=== PATIENT | female | born 1970 | race Caucasian/White ===

== ENCOUNTER → 2017-03-09 | Outpatient (CLI) | payer OTHER ==
[~2017-03-09] MED LIST: ALPR-411 PO; BUPR-83 PO; LEVO150T PO
[2017-03-09 14:20] LABS: URINE APPEARANCE CLOUDY (CLEAR); URINE BILIRUBIN NEG (NEG); URINE COLOR YELLOW; URINE EPITHELIAL CELL AUTO >30 /lpf (0-5); URINE NITRITE NEG (NEG); URINE SPECIFIC GRAVITY 1.017 (1.000-1.030); UROBILINOGEN NEG (NEG)
[2017-03-09 14:27] LABS: MANUAL MICROSCOPIC REQUIRED? NO; REVIEW REQ? NO
== END | disposition home or self-care (01) ==
LOC: C.LABSPEC 13:32
PROVIDERS: ATTEND Physician Assistant
DX: R39.9 Unspecified symptoms and signs involving the genitourinary system (principal)

== ENCOUNTER → 2017-03-22 | Outpatient (CLI) | payer OTHER ==
--- NOTE | 2017-03-23 08:21 | MAMMOGRAPHY REPORT ---
BILATERAL DIGITAL SCREENING MAMMOGRAM TOMOSYNTHESIS WITH CAD: 03/22/2017 CLINICAL HISTORY: Routine screening. TECHNIQUE: Bilateral CC and MLO views of the breasts with and without implant displacement views wer e obtained. Tomosynthesis was also performed on the implant displaced images. Current study was als o evaluated with a Computer Aided Detection (CAD) system. COMPARISON: Comparison is made to exams dated: 03/31/2015 mammogram, 02/07/2014 mammogram, 11/29/2012 ma mmogram - [facility], 12/08/2010 mammogram, 08/19/2014 mammogram, and 02/14/2014 mammog mitchell - [facility]. BREAST COMPOSITION: The tissue of both breasts is heterogeneously dense, which may obscure small mas ses. FINDINGS: There are round and punctate benign-appearing microcalcifications scattered in the breasts. Bilateral sub-pectoral saline implants are intact. No new suspicious mass, architectural distortio n or cluster of microcalcifications is seen. IMPRESSION: ACR BI-RADS CATEGORY 1: NEGATIVE There is no mammographic evidence of malignancy. A 1 year screening mammogram is recommended. The pa tient will receive written notification of the results. Approximately 10% of breast cancers are not detected with mammography. A negative mammographic report should not delay biopsy if a clinically suggestive mass is present. Elvira Price M.D. ay/:03/22/2017 18:02:32 [employer]: Raven WRIGHT)([place]), [facility] letter sent: Normal 1/2 BI-RADS Code: ACR BI-RADS Category 1: Negative
== END | disposition home or self-care (01) ==
LOC: C.MAMM 15:01
PROVIDERS: ATTEND Obstetrics & Gynecology
DX: Z12.31 Encounter for screening mammogram for malignant neoplasm of breast (principal)

== ENCOUNTER → 2017-03-28 | Outpatient (CLI) | payer OTHER ==
--- NOTE | 2017-03-28 09:22 | DIAGNOSTIC IMAGING REPORT ---
ULTRASOUND ABDOMEN COMPLETE CLINICAL HISTORY: Generalized abdominal pain. COMPARISON STUDY: Abdominal CT dated 08/02/2016. TECHNIQUE: Real-time, grayscale, and color flow sonography of the abdomen was performed. Images are reviewed in the transverse and longitudinal planes. FINDINGS: Liver: The liver is normal in size and echotexture. There is no intrahepatic biliary ductal dilatation. The main portal vein is patent. Gallbladder: The gallbladder is normal in appearance. No gallstones are identified. There is no gallbladder wall thickening or pericholecystic fluid. A sonographic Rodriguez's sign is reportedly absent. The common bile duct measures up to 0.4 cm in diameter. Pancreas: Visualized portions of the pancreatic head and body are normal in appearance. Spleen: The spleen is normal in size and echotexture, measuring 10.9 cm in length. Kidneys: The kidneys are normal in size and echotexture. There is no hydronephrosis. The right kidney measures 10.2 cm in length and the left kidney measures 10.2 cm in length. No shadowing calculi are identified. Abdominal vasculature: Visualized portions of the abdominal aorta and IVC are normal in appearance. Ascites: None. IMPRESSION: Unremarkable sonographic assessment of the abdomen. Electronically signed by: Everett Schmidt M.D. 03/28/2017 9:21 AM Dictated Date/Time: 03/28/2017 9:18 AM
== END | disposition home or self-care (01) ==
LOC: C.ULTRBC 08:42
PROVIDERS: ATTEND Physician Assistant
DX: R10.84 Generalized abdominal pain (principal)

== ENCOUNTER → 2017-07-29 | Outpatient (CLI) | payer OTHER ==
[~2017-07-29] MED LIST changes: +GADAVIST IV PRN
--- NOTE | 2017-07-29 09:04 | DIAGNOSTIC IMAGING REPORT ---
MRI OF THE BRAIN COMBO INTERNAL ARTERY CANAL PROTOCOL CLINICAL HISTORY: Facial injury. Dizziness. Tinnitus. Loss of balance. COMPARISON STUDY: No priors. TECHNIQUE: MRI of the brain was performed utilizing various T1 and T2-weighted sequences in the axial, sagittal, and coronal planes. Contrast-enhanced sequences were acquired following the administration of 6.5 cc of Gadavist. Additional high-resolution imaging was performed through the skull base both pre and post contrast to assess the internal auditory canals. FINDINGS: Brain parenchyma: The brain parenchyma is normal in appearance. There is no hemorrhage or mass effect. There is no restricted diffusion to suggest acute ischemia. No enhancing mass lesion is identified on the postcontrast images. Bowden-white matter differentiation is preserved. No extra-axial fluid collection is seen. The cerebellar tonsils are normal in configuration. Ventricles, sulci, and cisterns: Normal in configuration. Internal artery canals: There is no enhancing mass lesion identified within the cerebellopontine angle bilaterally. No mass or abnormal enhancement is seen along the course of the internal auditory canals. The middle ear structures are normal as visualized. Pituitary and sella: Unremarkable. Intracranial vasculature: Normal flow voids are maintained at the skull base. Orbits: The bony orbits are grossly intact. Orbital contents are normal in appearance. Sinuses and mastoids: Trace mucosal thickening is seen in the maxillary antra. The remaining paranasal sinuses and the mastoid air cells are clear. Calvarium: Unremarkable. Cervical cord: Partially visualized cervical spinal cord is normal in morphology and signal intensity. IMPRESSION: 1. No acute intracranial abnormality. 2. Unremarkable MRI assessment of the internal auditory canals. Electronically signed by: Everett Schmidt M.D. 07/29/2017 9:03 AM Dictated Date/Time: 07/29/2017 8:58 AM
== END | disposition home or self-care (01) ==
LOC: C.MRI 07:34
PROVIDERS: ATTEND Physician Assistant
DX: R51 Headache (principal); R26.89 Other abnormalities of gait and mobility; H93.A1 Pulsatile tinnitus, right ear; R42 Dizziness and giddiness; S09.93XA Unspecified injury of face, initial encounter; X58.XXXA Exposure to other specified factors, initial encounter